=== PATIENT | male | born 1995 | race Caucasian/White ===

== ENCOUNTER 2016-11-20 13:02 | Emergency (ER) | payer BC ==
[~2016-11-20] VITALS: Ht 177.8 cm; Wt 59.7 kg
[~2016-11-20 13:02] MED LIST: PRED10TA PO
[2016-11-20 13:06] VITALS: PULSE 102; TEMP 36.9; Ht 177.8 cm; Wt 59.7 kg
[2016-11-20] MEDS ORDERED: KETOROLAC TROMETHAMINE 15 MG/ML VIAL IV STA (13:21)
[2016-11-20] MEDS ORDERED: DEXAMETHASONE SOD INJ 4 MG/ML VIAL IV STA (13:21)
[2016-11-20] MEDS ORDERED: SODIUM CHLORIDE 0.9% 1000ML 1,000 ML IV STA (13:21)
[2016-11-20] MEDS ORDERED: KETOROLAC TROMETHAMINE 30 MG/ML VIAL ONE (13:40)
--- NOTE | 2016-11-20 13:41 | EMERGENCY ROOM VISIT NOTE ---
History First contact with patient: 13:08 Chief Complaint: THROAT PAIN/INJURY Stated Complaint: THROAT SWELLING, PAIN PERSISTANT History of Present Illness The patient is a 21 year old male who presents to the Emergency Room accompanied by his mother with complaints of throat pain and swelling. The patient reports that for the past 5 days, he has had a sore throat. He was initially seen at [facility] 4 days ago and prescribed a steroid. He states that at that time, strep testing was performed and was negative. He reports his symptoms did not improve, and 2 days ago he was seen again by [facility]. A repeat rapid strep test was performed and was negative. [place] testing was negative at that time as well. He was prescribed doxycycline and has been taking this as prescribed. He states that his throat feels very swollen and he has having difficulty breathing and feels like his voice is muffled. He rates his overall discomfort a 5/10. He is able to swallow, but states it is painful to do so. He reports he has had intermittent fevers up to 100F. He denies trismus, cough, earache, headache, nausea or vomiting. His mother does report that the patient had a strep infection a few months ago. The patient has a history of seasonal allergies and the mother feels that this may be related. Review of Systems A complete 10 point review of systems was reviewed with the patient with pertinent positives and negatives as per history of present illness. All else were negative. Social History Smoking Status: Never Smoker Current/Historical Medications Scheduled Cefdinir (Omnicef), 1 CAP PO BID Doxycycline (Monohydrate) (Doxycycline), 100 MG PO BID Loratadine (Claritin), 10 MG PO DAILY Prednisone (Prednisone), 0 PO UD Scheduled PRN Acetaminophen (Tylenol), 650 MG PO Q8 PRN for Pain Albuterol Sulfate (Proair Respiclick), 2 PUFFS INH Q4 PRN for SOB/Wheezing Dextromethorphan-Guaifenesin (Mucinex Dm), 1 TAB PO Q12 PRN for Physical Exam Vital Signs Date Time Temp Pulse Resp B/P (MAP) Pulse Ox O2 Delivery O2 Flow Rate FiO2 11/20/16 14:42 18 114/66 97 Room Air 11/20/16 13:06 98 Room Air 11/20/16 13:06 36.9 102 18 127/74 98 Room Air Physical Exam VITALS: Vitals are noted on the nurse's note and reviewed by myself. Vital signs stable. GENERAL: This is a 21-year-old male, in no acute distress, nondiaphoretic, well- developed well-nourished. SKIN: The skin was without rashes. EARS: External auditory canals clear, tympanic membranes pearly lin without erythema or effusion bilaterally. EYES: Pupils equal round and reactive to light and accommodation. Conjunctivae without injection, sclerae without icterus. MOUTH: Mucous membranes moist. Tonsils are 3+ bilaterally with exudate present. Airway patent. NECK: Supple without nuchal rigidity. No lymphadenopathy. HEART: Regular rate and rhythm without murmurs gallops or rubs. LUNGS: Clear to auscultation bilaterally without wheezes, rales or rhonchi. NEURO: Patient was alert and oriented to person place and time. Medical Decision & Procedures Laboratory Results 11/20/16 13:35 Red Blood Count 5.56, Mean Corpuscular Volume 84.0, Mean Corpuscular Hemoglobin 29.5, Mean Corpuscular Hemoglobin Concent 35.1, Mean Platelet Volume 10.0 11/20/16 13:35 Test 11/20/16 13:35 White Blood Count 11.13 K/uL (4.8-10.8) Red Blood Count 5.56 M/uL (4.7-6.1) Hemoglobin 16.4 g/dL (14.0-18.0) Hematocrit 46.7 % (42-52) Mean Corpuscular Volume 84.0 fL (80-100) Mean Corpuscular Hemoglobin 29.5 pg (25-34) Mean Corpuscular Hemoglobin Concent 35.1 g/dl (32-36) Platelet Count 235 K/uL (130-400) Mean Platelet Volume 10.0 fL (7.4-10.4) RDW Standard Deviation 39.3 fL (36.4-46.3) RDW Coefficient of Variation 12.9 % (11.5-14.5) Neutrophils % (Manual) 54.8 % Lymphocytes % (Manual) 5.2 % Variant Lymphocytes % (manual) 31.3 % Monocytes % (Manual) 8.7 % Neutrophils # (Manual) 6.10 K/uL (1.4-6.5) Total Absolute Neutrophils 6.10 K/uL (1.4-6.5) Lymphocytes # (Manual) 0.58 K/uL (1.2-3.4) Absolute Variant Lymphocytes 3.48 K/uL Total Absolute Lymphocytes 4.06 K/uL (1.2-3.4) Monocytes # (Manual) 0.97 K/uL (0.11-0.59) Red Blood Cell Morphology Unremarkable Anion Gap 5.0 mmol/L (3-11) Est Creatinine Clear Calc Drug Dose 100.9 ml/min Estimated GFR () 127.9 Estimated GFR (Non- 110.4 BUN/Creatinine Ratio 6.9 (10-20) Calcium Level 9.5 mg/dl (8.5-10.1) Medications Administered Medications (Trade) Dose Ordered Sig/Layne Route Start Time Stop Time Status Last Admin Dose Admin Sodium Chloride 1,000 ml @ 999 mls/hr Q1H1M STAT IV 11/20/16 13:21 11/20/16 14:21 DC 11/20/16 13:41 999 MLS/HR Dexamethasone Sodium Phosphate (Decadron Inj) 10 mg NOW STAT IV 11/20/16 13:21 11/20/16 13:24 DC 11/20/16 13:41 10 MG Ketorolac Tromethamine (Toradol Inj) 30 mg STK-MED ONCE .ROUTE 11/20/16 13:40 11/20/16 13:41 DC 11/20/16 13:43 15 MG Ceftriaxone Sodium (Rocephin Inj) 1 gm NOW STAT IV 11/20/16 14:20 11/20/16 14:21 DC 11/20/16 14:42 1 GM ED Course The patient was evaluated as above. Labs were drawn and IV access was obtained. Patient was medicated with 1 L normal saline solution, 15 mg Toradol IV, 10 mg Decadron IV and 1 g Rocephin. Patient was reevaluated and states he is feeling somewhat better. Findings and treatment plan were discussed with the patient and mother. Discharge instructions were reviewed with the patient. The patient verbalized understanding of my assessment and treatment plan and was discharged home in good condition. Medical Decision Differential diagnosis includes strep pharyngitis, mononucleosis, peritonsillar abscess, retropharyngeal abscess, among others. The patient is a 21-year-old male who presents today complaining of throat pain and swelling. Exam does show moderately swollen tonsils, but no evidence of abscess. Labs revealed a mild leukocytosis, possible secondary to the patient's steroid use. The patient was given IV Rocephin, Decadron and Toradol. He will be switched to Omnicef. He was given information for ENT follow up. Conservative measures were discussed with the patient and his mother. Based on the patient's presentation and work up, I feel the patient is stable for outpatient treatment. The patient was educated to return to the emergency department for any worsening of their current condition or new/concerning symptoms. He will follow up with his PCP and ENT. Medication Reconcilliation Current Medication List: was personally reviewed by me Blood Pressure Screening Patient's blood pressure: Normal blood pressure Impression Primary Impression: Exudative tonsillitis Departure Information Dispostion Home / Self-Care Condition GOOD Prescriptions Cefdinir (OMNICEF) 300 Mg Cap 1 CAP PO BID for 10 Days, #20 CAP Prov: Ginna Russell ., ABRAHAN 11/20/16 Referrals No Doctor, Assigned (PCP) Matthew Singletary MD Patient Instructions My [facility] Additional Instructions You were seen in the emergency department for your tonsillitis. You were prescribed Omnicef to be taken twice daily for 10 days. This is an antibiotic. All antibiotics have the potential to cause diarrhea. Stop this medication and contact a medical provider if you were to develop any significant adverse side effects including: wheezing, shortness of breath, passing out, vomiting, or a diffuse rash. Always take antibiotics as directed and COMPLETE the ENTIRE course regardless of the improvement of your symptoms. Stop the doxycycline. Continue the steroid until finished. For pain and fever control, you can use the following [id number] medicines (if >12 yo): - Regular strength (325mg/tab) Tylenol (acetaminophen) 2 tabs every 4-6 hours as needed. Do not exceed 12 tablets in a 24 hour period. Avoid taking more than 4 grams (4000 mg) of Tylenol per day. This includes any other sources of acetaminophen you may take on a regular basis. - Regular strength (200 mg/tab) Advil (ibuprofen) 3-4 tabs every 4-6 hours as needed. Do not exceed a dose of 3200 mg per day. In addition to your prescribed medications, you can also use the following home remedies: - Warm salt-water gargles 3 times per day can soothe your throat and help to fight infection. - Warm tea with honey can soothe your throat. Return to the emergency department if your symptoms persist or worsen over the next 2-3 days despite treatment course outlined above. Return to the emergency department if you develop the following symptoms of: inability to swallow solids , liquids, or drool; excessive wheezing or inability to catch your breath; or intractable fever or pain. Follow up with your primary care provider in 2-3 days from today's emergency department visit. You may follow-up with ENT for further evaluation.
[2016-11-20 13:53] LABS: HEMATOCRIT 46.7 % (42-52); MEAN CORPUSCULAR HEMOGLOBIN 29.5 pg (25-34); MEAN CORPUSCULAR HGB CONC 35.1 g/dl (32-36); PLATELET COUNT 235 K/uL (130-400); RED BLOOD COUNT 5.56 M/uL (4.7-6.1); WHITE BLOOD COUNT 11.13 K/uL (4.8-10.8)
[2016-11-20] MEDS ORDERED: ACET-1311 PO (14:06)
[2016-11-20] MEDS ORDERED: DEXT30TA7 PO (14:06)
[2016-11-20] MEDS ORDERED: CLR10 PO (14:06)
[2016-11-20] MEDS ORDERED: ALBU18002 INH (14:06)
[2016-11-20] MEDS ORDERED: DOXY-300 PO (14:06)
[2016-11-20 14:09] LABS: BUN/CREATININE RATIO 6.9 (10-20); CALCIUM 9.5 mg/dl (8.5-10.1); CREATININE 0.97 mg/dl (0.60-1.40); POTASSIUM 4.3 mmol/L (3.5-5.1)
[2016-11-20] MEDS ORDERED: CEFTRIAXONE SOD INJ 1 GM ADDVIAL IV STA (14:20)
[2016-11-20] MEDS ORDERED: CEFD300C2 PO (14:28)
[2016-11-20 14:36] LABS: COMPLETE YES; LYMPH ABS # 0.58 K/uL (1.2-3.4); LYMPHOCYTE % 5.2 %; NEUTROPHILS % 54.8 %; VARIANT LYM ABS # 3.48 K/uL; VARIANT LYMPHOCYTE % 31.3 %
[2016-11-20 14:42] VITALS: BP 114/66; O2SAT 97
== END 2016-11-20 15:14 | disposition home or self-care (01) ==
LOC: C.EDB 13:04
DX: J03.90 Acute tonsillitis, unspecified (principal); J30.2 Other seasonal allergic rhinitis